=== PATIENT | female | born 1970 | race Caucasian/White ===

== ENCOUNTER → 2020-03-26 | Outpatient (CLI) | payer OTHER ==
[2014-07-06 10:27] VITALS: BP 84/53
[~2020-03-26] MED LIST: ALPR0.5T PO; CETI10TA74 PO; OMEG-168 PO; OXYC1TAB15 PO; SPIR100T4 PO; TRAZ-118 PO
--- NOTE | 2020-03-26 17:25 | KCIC ---
EXAMINATION: MRI RIGHT SHOULDER WITHOUT IV CONTRAST CLINICAL HISTORY: Chronic right shoulder pain and LROM, several months. NKI. TECHNIQUE: Multiplanar multisequential images obtained through the shoulder without intravenous contr ast. COMPARISON: None FINDINGS: TENDONS: - Supraspinatus: Mild tendinosis without discrete tear. - Infraspinatus: Small low-grade partial thickness articular-sided versus interstitial tear in the an terior third of the tendon at the insertion and associated tendinosis. - Subscapularis: Within normal limits. - Teres Minor: Within normal limits. - Biceps Tendon: The long head biceps tendon is intact and appropriately located. MUSCLES: Muscle bulk and signal intensity are within normal limits. LABRUM: Posterior and inferior labral degeneration without discrete tear. GLENOHUMERAL JOINT: - Joint Fluid: No joint effusion or synovitis. - Cartilage: Within normal limits. ACROMIOCLAVICULAR JOINT: Moderate hypertrophic degenerative changes. BONES/MARROW: No evidence of acute fracture or suspicious marrow replacing process. Chronic reactive changes in the posterior greater tuberosity. OTHER: No other significant abnormality identified. IMPRESSION: Small low-grade infraspinatus tendon tear and mild rotator cuff tendinosis as described. Electronically signed by: Nicholas Guzman DO (03/26/2020 5:23 PM) [id number]
== END ==
LOC: KCIC MRI 15:22
PROVIDERS: ATTEND Physician Assistant Medical
DX: S46.811A Strain of other muscles, fascia and tendons at shoulder and upper arm level, right arm, initial encounter (principal); M75.81 Other shoulder lesions, right shoulder; X58.XXXA Exposure to other specified factors, initial encounter; Y93.89 Activity, other specified; Y92.89 Other specified places as the place of occurrence of the external cause; Y99.8 Other external cause status
CPT/HCPCS: 73221

== ENCOUNTER → 2020-05-27 | Outpatient (CLI) | payer OTHER ==
[2014-07-06 10:27] VITALS: BP 84/53
--- NOTE | 2020-05-27 15:53 | KCIC ---
MR CERVICAL SPINE WO DATE: 05/27/2020 1:55 PM INDICATION: Chronic neck pain, Rt shoulder pain TECHNIQUE: Multiplanar multisequence magnetic resonance imaging of the cervical spine was performed w ithout administration of intravenous contrast using the standard cervical spine protocol. COMPARISON: None. FINDINGS: Straightening of the cervical lordosis. No acute fracture. Mild multilevel degenerative disc desicca tion and disc height loss. No marrow replacing process to suggest malignancy. The spinal cord is normal in signal intensity. On the limited views of the cranial cavity and brain, the cerebellum and claire have normal morphology and signal characteristics. No Chiari malformation. No soft tissue abnormality. Normal signal voids are present in the vertebral arteries. C2-3: No significant spinal canal stenosis or neural foraminal narrowing. C3-4: No significant spinal canal stenosis or neural foraminal narrowing. C4-5: Mild left facet arthropathy. Uncovertebral hypertrophy. Mild left neural foraminal narrowing. N o spinal canal stenosis. C5-6: Disc osteophyte complex with left paracentral protrusion. Uncovertebral hypertrophy. Mild right and moderate to severe left neural foraminal narrowing. Mild spinal canal stenosis. C6-7: Disc osteophyte complex with left paracentral protrusion. Uncovertebral hypertrophy. Mild to mo derate spinal canal stenosis. Mild left neural foraminal narrowing. C7-T1: Moderate left facet arthropathy. No significant spinal canal stenosis or neural foraminal narr owing. IMPRESSION: Cervical spondylosis, worst at C5-6 with moderate to severe narrowing of the left neural foramen. Electronically signed by: Niko Wise MD (05/27/2020 3:50 PM) [id number]
== END ==
LOC: KCIC MRI 13:42
PROVIDERS: ATTEND Physician Assistant Surgical
DX: M47.813 Spondylosis without myelopathy or radiculopathy, cervicothoracic region (principal); M25.78 Osteophyte, vertebrae; M48.02 Spinal stenosis, cervical region
CPT/HCPCS: 72141

== ENCOUNTER → 2020-10-28 | Outpatient (CLI) | payer OTHER ==
[2014-07-06 10:27] VITALS: BP 84/53
--- NOTE | 2020-10-28 16:27 | KCIC ---
Examination: MRI of the right shoulder without contrast HISTORY: History of progressing right shoulder pain for one year COMPARISON: May 24, 2020 TECHNIQUE: Multiplanar multisequence MR imaging of the right shoulder performed without contrast FINDINGS: The long head of the biceps tendon within the bicipital groove. The attachment of the long head the b iceps tendon to the superior labral anchor grossly appears intact. The attachment of the subscapulari s tendon, supraspinatus appear intact. There is subtle increased T2 signal identified in the infraspi natus tendon at its attachment likely a subtle undersurface tear similar to prior exam. Mild increase d T2 signal identified in the rotator cuff region likely mild tendinosis. The visualized labrum gross ly appears unremarkable. Mild degenerative changes acromioclavicular joint and the glenohumeral joint . The acromion is type II. The muscle bulk grossly appears unremarkable. Fat is identified in the rot ator interval. IMPRESSION: 1. Subtle increased T2 signal identified in the infraspinatus tendon at its attachment likely a subt le undersurface tear similar to prior exam. 2. Mild rotator cuff tendinosis. 3. Mild degenerative changes acromioclavicular joint, glenohumeral joint. Electronically signed by: Lion Martinez MD (10/28/2020 4:24 PM) [id number]
== END ==
LOC: KCIC MRI 14:26
PROVIDERS: ATTEND Orthopaedic Surgery Sports Medicine
DX: M19.011 Primary osteoarthritis, right shoulder (principal); M75.101 Unspecified rotator cuff tear or rupture of right shoulder, not specified as traumatic
CPT/HCPCS: 73221

== ENCOUNTER → 2021-07-04 | Outpatient (CLI) | payer OTHER ==
[2014-07-06 10:27] VITALS: BP 84/53
--- NOTE | 2021-07-04 10:42 | KCIC ---
EXAMINATION: MRI BRAIN WO CLINICAL HISTORY: APHASIA. History of chronic aphasia, now getting worse. New balance issues. Migrain e headaches. TECHNIQUE: Multiplanar multisequential images obtained through the brain without intravenous contrast . COMPARISON: None FINDINGS: Acute Change: No evidence of an acute intracranial abnormality. No evidence of restricted diffusion. Hemorrhage: No evidence of acute intracranial hemorrhage. Mass Lesion/Mass Effect: No evidence of intracranial mass or extra-axial fluid collection. No signifi cant mass effect. Parenchyma: Mild generalized parenchymal volume loss. Parenchymal signal and morphology otherwise wit hin normal limits. Ventricles: Ventricular enlargement proportional to the degree of parenchymal volume loss. Skull Base: Hypothalamic and pituitary regions grossly unremarkable. Craniocervical junction within n ormal limits. No evidence of suspicious marrow replacement process. Vasculature: Large vessel and dural venous sinus flow voids within normal limits. Other: Paranasal sinuses and mastoids clear. Orbits and extracranial soft tissues unremarkable. IMPRESSION: No evidence of acute intracranial abnormality. Electronically signed by: Nicholas Guzman DO (07/04/2021 10:40 AM) [id number]
== END ==
LOC: KCIC MRI 08:28
PROVIDERS: ATTEND Physician Assistant Medical
DX: I51.7 Cardiomegaly (principal); G43.909 Migraine, unspecified, not intractable, without status migrainosus; R47.01 Aphasia
CPT/HCPCS: 70551